=== PATIENT | male | born 1965 | race African-American/Black ===

== ENCOUNTER 2018-04-08 08:31 | Outpatient (CLI) | payer MEDICARE ==
[~2018-04-08 08:31] MED LIST: ISOVUE-370 76%-LOCM 1 ML ONE
== END 2018-04-08 08:32 | disposition home or self-care (01) ==
LOC: BICCT 08:31
PROVIDERS: ATTEND Internal Medicine Hematology & Oncology
DX: C49.A2 Gastrointestinal stromal tumor of stomach (principal); Z98.890 Other specified postprocedural states
CPT/HCPCS: 74177

== ENCOUNTER 2018-11-08 09:00 | Outpatient (CLI) | payer MEDICARE ==
[2018-11-08] MEDS ORDERED: Iopamidol 370 76% 100 ML VIAL ONE (09:38)
--- NOTE | 2018-11-08 10:32 | CT ---
CT ABDOMEN AND PELVIS WITH IV AND ORAL CONTRAST: HISTORY: Gastrointestinal stromal tumor of the stomach, status post surgical removal three years ago. No chem o or radiation. COMPARISON: 04/08/2018 FINDINGS: The lung bases are clear. A few small, low density lesions in the liver are stable. The spleen, [place], adrenal glands, and kidneys are normal. No free air, free fluid, or lymphadenopathy is seen i n the abdomen or pelvis. Postop changes of partial gastrectomy and gastrojejunal anastomotic are again seen. The small bowel loops are not abnormally dilated. There are vascular calcifications without evidence of aneurysmal d ilatation of the abdominal aorta. Degenerative changes are seen in the spine. No osteolytic or oste oblastic lesions are seen. IMPRESSION: No evidence of metastatic disease. POS: TPC
== END 2018-11-08 09:01 | disposition home or self-care (01) ==
LOC: BICCT 09:00
PROVIDERS: ATTEND Internal Medicine Hematology & Oncology
DX: C49.A2 Gastrointestinal stromal tumor of stomach (principal)
CPT/HCPCS: 74177

== ENCOUNTER 2019-04-29 10:53 | Outpatient (CLI) | payer MEDICARE ==
--- NOTE | 2019-04-29 11:55 | CT ---
CT ABDOMEN AND PELVIS WITH IV CONTRAST 04/29/2019 CLINICAL INFORMATION: History of GI stromal tumor. Tumor removed 3 years ago. This is a follow-up evaluation. COMPARISON: 11/08/2018. Technique: Multiple contiguous axial CT images are obtained through the abdomen and pelvis with IV contrast. Cor onal reformatted images are provided. FINDINGS: Lower Chest: The lung bases are clear. The heart is enlarged. Vessels: Minimal vascular calcifications are seen in the abdominal aorta. The abdominal aorta is norm al in caliber and tortuous. Abdomen: Portal vein:Patent Gallbladder: Decompressed. Liver: Few small hypodense lesions are again seen in the left hepatic lobe as well as right hepatic l obe which are stable in size and appearance compared to prior study as well as a study on 01/12/2015. No new hepatic lesions are seen. Spleen: within normal limits. Pancreas: within normal limits. Adrenals: within normal limits. Kidneys: Subcentimeter too small to characterize hypodense lesion is again seen in the medial aspect superior pole left kidney. Structures shown to represent a cyst on prior study in 2014 which has decreased in size. Tiny subcentimeter hypodense lesion is again seen in the midportion right kidney. Bowel: Loops of small bowel are normal in caliber. Postoperative changes related to partial gastrecto my with gastrojejunal anastomosis are again seen. Colonic diverticulosis is again present. Appendix: The appendix is visualized and normal in caliber. Peritoneum: No ascites or free air; no fluid collection. Mesentery and Retroperitoneum: No enlarged mesenteric or retroperitoneal lymph nodes. Abdominal Wall: Midline scarring is present in a supraumbilical location. Pelvis: Reproductive Organs: No pelvic masses. Pelvis within normal limits. Bladder: Mostly decompressed but grossly normal in appearance. Bones: No suspicious lytic or sclerotic osseous lesions are identified. Degenerative changes are note d in the spine. IMPRESSION: 1. Stable postoperative changes related to partial gastrectomy and gastrojejunostomy. 2. Stable hypodense lesions within each lobe of the liver seen on prior studies dating back to 2014. 3. Colonic diverticulosis. 4. No CT findings to suggest metastatic disease. 5. Cardiomegaly.
[2019-04-29] MEDS ORDERED: ISOVUE-370 76%-LOCM 1 ML ONE (12:45)
== END 2019-04-29 10:54 | disposition home or self-care (01) ==
LOC: BICCT 10:53
PROVIDERS: ATTEND Specialist
DX: Z08 Encounter for follow-up examination after completed treatment for malignant neoplasm (principal); Z85.09 Personal history of malignant neoplasm of other digestive organs; K76.9 Liver disease, unspecified; K57.30 Diverticulosis of large intestine without perforation or abscess without bleeding; I51.7 Cardiomegaly; Z98.890 Other specified postprocedural states
CPT/HCPCS: 74177; Q9966

== ENCOUNTER 2019-06-08 21:33 | Inpatient (IN) | payer MEDICARE ==
[2019-06-08] MEDS ORDERED: hydrALAZINE 20 MG/ML VIAL ONE (22:12)
[2019-06-08] MEDS ORDERED: Morphine 2 MG/ML SYRINGE SLOW IVP PRN (23:02)
[2019-06-08] MEDS ORDERED: Morphine 4 MG/ML VIAL SLOW IVP PRN (23:02)
[2019-06-08] MEDS ORDERED: Ondansetron PF 4 MG/2 ML Vial ONE (23:03)
[2019-06-08] MEDS ORDERED: Ondansetron PF 4 MG/2 ML Vial IVP PRN (23:03)
[2019-06-08] MEDS ORDERED: Morphine 4 MG/ML VIAL ONE (23:03)
[2019-06-08] MEDS ORDERED: Acetaminophen 1,000 MG in Premix Bag 1 BAG IVPB PRN (23:04)
[2019-06-08] MEDS ORDERED: Sodium Chloride 0.9% (PF) 10 ML VIAL FS PRN (23:12)
[2019-06-09] MEDS ORDERED: Bupivacaine HCl 0.5%/Epinephrine 1:200,000/PF 30 ml Vial ONE
[2019-06-09] MEDS ORDERED: Fentanyl 250 MCG/5 ML VIAL ONE (00:06)
[2019-06-09] MEDS ORDERED: cefOXitin 2 GM VIAL ONE ×2 (00:20→02:31)
[2019-06-09] MEDS ORDERED: Sodium Chloride 0.9% 100 ML ONE (00:21)
[2019-06-09] MEDS ORDERED: Promethazine HCl 25 MG/ML VIAL SLOW IVP PRN ×2 (00:51→02:58)
[2019-06-09] MEDS ORDERED: Promethazine HCl 25 MG/ML VIAL IM PRN ×4 (00:51→02:58)
[2019-06-09] MEDS ORDERED: Ondansetron HCl/PF 4 MG/2 ML Vial IVP PRN ×2 (00:51→02:58)
[2019-06-09] MEDS ORDERED: diphenhydrAMINE 50 MG/ML VIAL IM PRN ×2 (00:52→02:58)
[2019-06-09] MEDS ORDERED: fentaNYL Citrate/PF 2,000 MCG in Sodium Chloride 0.9% 60 ML IV PRN ×2 (00:52→02:58)
[2019-06-09] MEDS ORDERED: Ondansetron PF 4 MG/2 ML Vial IVP PRN ×2 (00:52→02:58)
[2019-06-09] MEDS ORDERED: Naloxone HCl 0.4 mg/ml Vial IV PRN ×2 (00:52→02:58)
[2019-06-09] MEDS ORDERED: diphenhydrAMINE 25 MG CAP PO PRN ×2 (00:52→02:58)
[2019-06-09] MEDS ORDERED: diphenhydrAMINE 50 MG/ML VIAL IVP PRN ×2 (00:52→02:58)
[2019-06-09] MEDS ORDERED: Zolpidem Tartrate 5 MG TAB PO PRN ×2 (00:52→02:58)
--- NOTE | 2019-06-09 00:54 | HP ---
CHIEF COMPLAINT: Abdominal pain. HISTORY OF PRESENT ILLNESS: Mr. Lara is a 53-year-old man who had gradual onset of lower abdominal pain beginning yesterday afternoon. This became progressively worse. He had several episodes of nausea and vomiting. His last bowel movement was on Thursday and he passed gas this morning, but has felt like he needed to pass gas or have a bowel movement, but has been unable to since that time. He presented to his local hospital, where a CT was concerning for closed-loop bowel obstruction. He had an NG tube placed with about half a canister of return and had incomplete relief of his pain with improvement but not resolution of his symptoms. He came to our hospital, was fairly comfortable when I first saw him and reported that he had intermittent episodes of crampy abdominal pain but not as severe as when he went into the hospital. His NG tube was something and had minimal output. PAST MEDICAL HISTORY: GI stromal tumor, status post antrectomy and Migel-en-Y reconstruction by Dr. Beach in 2017. This was an emergency surgery due to bleeding of the ulcer, was about 4-1/2 L of blood in the belly. He has been following up with Oncology and has not had any evidence of metastatic spread. He has severe hypertension, but normal renal function. PAST SURGICAL HISTORY: Emergency partial gastrectomy with Migel-en-Y reconstruction for GI stromal tumor with hemorrhage in 2017. He also had some sort of urologic procedure, which he describes as drainage of a blood clot from his penis. FAMILY HISTORY: Noncontributory. SOCIAL HISTORY: He does not smoke, drink, or use illicit drugs. ALLERGIES: NO KNOWN DRUG ALLERGIES. OUTPATIENT MEDICATIONS: Include; 1. Amlodipine 10 mg p.o. daily. 2. Clonazepam 1.5 mg p.o. b.i.d. 3. Clonidine 0.1 mg p.o. daily. 4. Metoprolol 50 mg p.o. daily. 5. Hydralazine 10 mg p.o. b.i.d. 6. Spironolactone 50 mg daily. 7. Imatinib. PHYSICAL EXAMINATION: VITAL SIGNS: He was initially quite hypertensive on arrival in our ER at 196/119, heart rate of 67, respirations 22, temperature 99.1, and 97% saturated on room air. His blood pressure has come down with IV hydralazine and is in the 140 systolic now. GENERAL: Reveals a healthy-appearing man, in no acute distress. He is not flushed, not jaundiced or icteric. HEENT: Unremarkable. NECK: Supple with no lymphadenopathy or thyroid nodules. HEART: Regular in its rate and rhythm without murmurs, rubs, or gallops. LUNGS: Clear to auscultation bilaterally. ABDOMEN: Soft, slightly distended and mildly tender to palpation in the lower abdomen. Bowel sounds are present. No palpable masses or hernias. EXTREMITIES: Warm and well perfused without edema. NEUROLOGIC: No focal deficits. PSYCHIATRIC: Alert, oriented, and appropriate. NG tube is in place and has return of flush. IMAGING: CT images were reviewed with our radiologist. There does not appear to be a closed loop obstruction. This does not appear to involve either of the anastomoses. There is some fluid around the bowel loops. ASSESSMENT: Closed loop small-bowel obstruction. Patient initially appeared quite comfortable, but his pain has returned. I have recommended proceeding emergently to the operating room tonight for lysis of adhesions, possible bowel resection. He is in agreement with this plan. Inherent risks were discussed. These include, but are not limited to, bleeding, infection, risks of anesthesia, damage to nearby structures including bowel and blood vessels, anastomotic leak, and need for other procedures. He understands and accepts these risks and wishes to proceed. Antibiotics have been ordered executive search consultant. He has been posted emergently for the operating room. Job ID: [id number]
[2019-06-09] MEDS ORDERED: Communication Order-Pharmacy FS SCH ×2 (01:00→03:00)
[2019-06-09] MEDS ORDERED: Morphine Sulfate 2 MG/ML SYRINGE SLOW IVP PRN (02:58)
[2019-06-09] MEDS ORDERED: Meperidine HCl/PF 25 MG/ML VIAL SLOW IVP PRN (02:58)
[2019-06-09] MEDS ORDERED: HYDROmorphone 2 MG/ML VIAL SLOW IVP PRN (02:58)
[2019-06-09] MEDS ORDERED: Ketorolac Tromethamine 30 MG/ML VIAL IVP PRN (02:58)
[2019-06-09] MEDS ORDERED: PACU-Morphine 4MG/ML VIAL SLOW IVP PRN (02:58)
[2019-06-09] MEDS ORDERED: Fentanyl 100 MCG/2 ML VIAL ONE (03:17)
[2019-06-09] MEDS ORDERED: Dextrose 50% Abboject 50 ML SYRINGE IVP PRN (03:19)
[2019-06-09] MEDS ORDERED: Insulin Regular 300 UNITS/3 ML VIAL SC PRN ×2 (03:19→11:59)
[2019-06-09] MEDS ORDERED: Dextrose 5% in Water 1,000 ML IV PRN (03:19)
[2019-06-09] MEDS ORDERED: Ondansetron PF 4 MG/2 ML Vial SLOW IVP PRN (03:20)
[2019-06-09] MEDS ORDERED: Pantoprazole 40 MG VIAL IVP SCH ×2 (03:30→09:00)
[2019-06-09] MEDS ORDERED: Ketorolac Tromethamine 30 MG/ML VIAL ONE (03:42)
[2019-06-09] MEDS: Sodium Chloride 0.9% 1,000 ML IV SCH ×4 (05:22→17:14)
[2019-06-09 05:31] LABS: #Lymphocytes 0.3 thou/uL (1.20-3.40); #Monocytes 0.8 thou/uL (0.11-0.59); #Neutrophils 8.6 thou/uL (1.40-6.50); %Basophils 0.3 % (0.0-1.0); %Eosinophils 0.1 % (0.0-10.0); %Monocytes 7.8 % (0.0-10.0); %Neutrophils 88.9 % (42.0-75.0); Hemoglobin 12.9 g/dL (14.0-18.0); Mean Corpuscular HGB CONC 32.6 g/dL (32.0-36.0); Mean Corpuscular Hemoglobin 31.4 pg (27.0-31.0); Mean Corpuscular Volume 96.3 fL (78.0-98.0); Mean Platelet Volume 7.7 fL (7.4-10.4); Platelet Count 321 thou/uL (130-400); Red Blood Cell (RBC) Count 4.11 mill/uL (4.70-6.10); White Blood Cell (WBC) Count 9.7 thou/uL (4.8-10.8)
[2019-06-09 05:55] LABS: Anion Gap 12 mmol/L (10-20); BUN (Urea Nitrogen) 21 mg/dL (8.4-25.7); Calc. Creatinine Clearance 0 mL/min (70-130); Calcium 8.6 mg/dL (7.8-10.44); Carbon Dioxide 25 mmol/L (22-29); Chloride 109 mmol/L (98-107); Estimated GFR-MDRD 65; Glucose 139 mg/dL (70-105); Potassium 4.1 mmol/L (3.5-5.1); Sodium 142 mmol/L (136-145)
[2019-06-09 06:34] VITALS: BMI 32.3
[2019-06-09] MEDS ORDERED: FLU VACC QS2019-20(6MOS UP)/PF 60 MCG/0.5 ML SYRINGE IM ONE (07:00)
[2019-06-09] MEDS ORDERED: Labetalol HCl 100 MG/20 ML VIAL SLOW IVP PRN ×3 (08:53→08:57)
[2019-06-09] MEDS ORDERED: cloNIDine 0.3mg/24 Hour PATCH TD SCH (09:00)
[2019-06-09] MEDS: CEFOXITIN SODIUM IVPB SCH ×2 (09:27→17:03)
[2019-06-09] MEDS: DEXTROSE ISO IVPB SCH ×2 (09:27→17:03)
[2019-06-09] MEDS ORDERED: Labetalol HCl 100 MG/20 ML VIAL SLOW IVP SCH (12:00)
[2019-06-09] MEDS: hydrALAZINE 20 MG/ML VIAL SLOW IVP PRN (13:01)
[2019-06-09] MEDS: Labetalol HCl 100 MG/20 ML VIAL SLOW IVP SCH ×3 (13:02→23:13)
--- NOTE | 2019-06-09 13:54 | PDOC.GSPN ---
Surgery Progress Note: Subj - Subjective Narrative: Patient feels much better this morning. He hasn't passed any gas yet but he is not nauseated and his abdominal pain is significantly better even with the incisional pain. The dressings clean and his abdomen is soft and nondistended. Labs look okay. Assessment/plan: Status post lysis of adhesions reduction and repair of internal hernia. Doing well overall. Awaiting return of bowel function. Continue NG and nothing by mouth for now Surgery Progress Note: Obj - Vital signs Vital signs: Vital Signs - Most Recent Temp Pulse Resp BP Pulse Ox 98.2 F 67 16 182/95 H 96 06/09/19 11:39 06/09/19 13:01 06/09/19 11:39 06/09/19 13:01 06/09/19 11:39 Surgery Progress Note: Results - Labs Result Diagrams: 06/09/19 04:58 06/09/19 04:58 Lab results: Laboratory Results - last 24 hr 06/09/19 06/09/19 06/09/19 04:58 04:58 04:58 WBC 9.7 RBC 4.11 L Hgb 12.9 L Hct 39.6 L MCV 96.3 MCH 31.4 H MCHC 32.6 RDW 13.0 Plt Count 321 MPV 7.7 Neutrophils % 88.9 H Lymphocytes % 3.0 L Monocytes % 7.8 Eosinophils % 0.1 Basophils % 0.3 Neutrophils # 8.6 H Lymphocytes # 0.3 L Monocytes # 0.8 H Eosinophils # 0.0 Basophils # 0.0 Sodium 142 Potassium 4.1 Chloride 109 H Carbon Dioxide 25 Anion Gap 12 BUN 21 Creatinine 1.37 H Estimated GFR (MDRD) 65 Glucose 139 H POC Glucose Calcium 8.6 Magnesium 1.8 06/09/19 06/09/19 05:37 11:44 WBC RBC Hgb Hct MCV MCH MCHC RDW Plt Count MPV Neutrophils % Lymphocytes % Monocytes % Eosinophils % Basophils % Neutrophils # Lymphocytes # Monocytes # Eosinophils # Basophils # Sodium Potassium Chloride Carbon Dioxide Anion Gap BUN Creatinine Estimated GFR (MDRD) Glucose POC Glucose 135 H 129 H Calcium Magnesium
[2019-06-09] MEDS: Acetaminophen 1,000 MG in Premix Bag 1 BAG IVPB SCH ×2 (14:02→19:55)
[2019-06-09] MEDS ORDERED: Succinylcholine Chloride 20 MG/ML 10 ml SYRINGE FS ONE (14:46)
[2019-06-09] MEDS ORDERED: Dexamethasone 20 MG/5 ML VIAL ONE (14:46)
[2019-06-09] MEDS ORDERED: ePHEDrine/0.9% NaCl/PF SYRINGE 50 mg/10 ml ONE (14:46)
[2019-06-09] MEDS ORDERED: PROPOFOL 200 MG/20 ML VIAL ONE (14:46)
[2019-06-09] MEDS ORDERED: Ondansetron PF 4 MG/2 ML Vial ONE (14:46)
[2019-06-09] MEDS ORDERED: Glycopyrrolate 0.2 MG/ML 5 ML SYRINGE ONE (14:46)
[2019-06-09] MEDS ORDERED: Lidocaine 1% PF 5 ML VIAL ONE (14:46)
[2019-06-09] MEDS ORDERED: Rocuronium Bromide 10 MG/ML (10ML VIAL) ONE (14:46)
[2019-06-09] MEDS: Pantoprazole 40 MG VIAL IVP SCH (20:00)
--- NOTE | 2019-06-09 21:33 | PDOC.HOSPP ---
- Subjective Encounter Date: 06/09/19 Encounter Time: 09:30 Subjective: Patient seen and examined for med mngt. No CP/SOB. Pain controlled. No new complaints. - Objective Vital Signs & Weight: Vital Signs (12 hours) Temp Pulse Resp BP BP BP Pulse Ox 06/09/19 19:42 98.2 F 66 18 158/81 H 95 06/09/19 17:08 66 18 161/89 H 97 06/09/19 17:04 79 06/09/19 14:54 98.7 F 79 16 175/93 H 99 06/09/19 13:01 67 182/95 H 06/09/19 11:39 98.2 F 68 16 176/94 H 96 06/09/19 09:45 161/91 H Weight Admit Weight 212 lb 15.52 oz Weight 212 lb 15.52 oz I&O: 06/08/19 06/09/19 06/10/19 06:59 06:59 06:59 Intake Total 1800 Output Total 500 Balance 1300 Result Diagrams: 06/09/19 04:58 06/09/19 04:58 Additional Labs: Accuchecks 06/09/19 06/09/19 06/09/19 18:04 11:44 05:37 POC Glucose 118 H 129 H 135 H EKG Reviewed by me: Yes (SR) Hospitalist ROS - Review of Systems Respiratory: denies: cough, dry, shortness of breath, hemoptysis, SOB with excertion, pleuritic pain, sputum, wheezing, other Cardiovascular: denies: chest pain, palpitations, orthopnea, paroxysmal noc. dyspnea, edema, light headedness, other - Medication Medications: Active Medications Generic Name Dose Route Start Last Admin Trade Name Freq PRN Reason Stop Dose Admin Clonidine 0.3 mg 06/09/19 09:00 06/09/19 09:29 [id number] TD 0.3 mg Q7DAYS ANUSHA Administration Hydralazine HCl 10 mg 06/09/19 08:56 06/09/19 13:01 Apresoline SLOW IVP 10 mg Q4H PRN Administration SBP Greater Than 180 Sodium Chloride 1,000 mls @ 150 mls/hr 06/08/19 23:15 06/09/19 17:14 Normal Saline 0.9% IV 1,000 mls .[id number] ANUSHA Administration Acetaminophen 1,000 mg/ Device 100 mls @ 400 mls/hr 06/09/19 14:00 06/09/19 19:55 IVPB 06/10/19 08:14 100 mls 0200,0800,1400,2000 ANUSHA Administration Labetalol HCl 10 mg 06/09/19 12:00 06/09/19 17:04 Normodyne SLOW IVP 10 mg Q6HR ANUSHA Administration Pantoprazole Sodium 40 mg 06/09/19 21:00 06/09/19 20:00 Protonix IVP 40 mg Q24HR ANUSHA Administration - Exam General Appearance: NAD Neck: supple, no JVD Heart: RRR, no gallops Respiratory: CTAB, no wheezes, no rales Gastrointestinal: soft Extremities: no edema Hosp A/P - Plan DVT proph w/SCDs HTN SILVA on CKD 2 HTN heart disease DM2 - diet controlled Obesity BMI 32.4 Gastric tumor HLD TERESA PLAN: Pt is NPO Add Clonidine 0.3 Patch Add scheduled Labetalol 10 mg Q 6h Add PRN HTN meds Add sliding scale Ambulate Cont IVF for SILVA AM labs
[2019-06-10] MEDS: Sodium Chloride 0.9% 1,000 ML IV SCH ×2 (01:51→21:13)
[2019-06-10] MEDS: Acetaminophen 1,000 MG in Premix Bag 1 BAG IVPB SCH ×2 (01:52→08:48)
[2019-06-10 04:40] LABS: #Lymphocytes 0.4 thou/uL (1.20-3.40); #Monocytes 0.8 thou/uL (0.11-0.59); #Neutrophils 6.7 thou/uL (1.40-6.50); %Eosinophils 0.1 % (0.0-10.0); %Lymphocytes 5.5 % (21.0-51.0); %Monocytes 10.5 % (0.0-10.0); %Neutrophils 83.9 % (42.0-75.0); Hemoglobin 11.9 g/dL (14.0-18.0); Mean Corpuscular HGB CONC 32.3 g/dL (32.0-36.0); Mean Corpuscular Hemoglobin 31.4 pg (27.0-31.0); Mean Corpuscular Volume 97.2 fL (78.0-98.0); Mean Platelet Volume 7.5 fL (7.4-10.4); Platelet Count 292 thou/uL (130-400); RBC Distribution Width 13.1 % (11.5-14.5); Red Blood Cell (RBC) Count 3.79 mill/uL (4.70-6.10); White Blood Cell (WBC) Count 7.9 thou/uL (4.8-10.8)
[2019-06-10 05:02] LABS: Anion Gap 12 mmol/L (10-20); BUN (Urea Nitrogen) 25 mg/dL (8.4-25.7); Calc. Creatinine Clearance 93 mL/min (70-130); Calcium 8.2 mg/dL (7.8-10.44); Carbon Dioxide 25 mmol/L (22-29); Chloride 112 mmol/L (98-107); Estimated GFR-MDRD 75; Glucose 95 mg/dL (70-105); Potassium 4.1 mmol/L (3.5-5.1); Sodium 145 mmol/L (136-145)
[2019-06-10] MEDS: Labetalol HCl 100 MG/20 ML VIAL SLOW IVP SCH ×2 (05:19→12:06)
[2019-06-10] MEDS ORDERED: Sodium Chloride 0.9% 1,000 ML IV SCH (07:12)
[2019-06-10] MEDS ORDERED: Enalaprilat Dihydrate 1.25 MG/ML VIAL SLOW IVP SCH ×3 (09:00→15:00)
[2019-06-10] MEDS: hydrALAZINE 20 MG/ML VIAL SLOW IVP PRN ×2 (09:00→12:32)
[2019-06-10] MEDS ORDERED: Metoprolol Tartrate 100 MG TAB PO SCH ×2 (10:00→21:00)
[2019-06-10] MEDS ORDERED: Amlodipine 10 MG TAB PO SCH (10:00)
[2019-06-10] MEDS ORDERED: Enoxaparin Sodium 40 MG/0.4 ML SYRINGE SC SCH (10:00)
[2019-06-10] MEDS ORDERED: Fentanyl 100 MCG/2 ML VIAL SLOW IVP PRN (10:35)
[2019-06-10] MEDS: hydrALAZINE 25 MG TAB PO SCH ×2 (14:12→21:03)
--- NOTE | 2019-06-10 14:56 | PDOC.GSPN ---
Surgery Progress Note: Subj - Subjective Narrative: Patient is feeling fine. He is not having any pain or nausea. He has passed gas. NG tube is in place but there is not much output. His dressings are clean and his abdomen is soft. Blood pressure has been high but other vital signs are okay. Assessment/plan: Doing well status post reduction of internal hernia and repair of mesenteric defect. He is beginning to have some bowel functions we will clamp his NG and check residuals. He has had very difficult to control high blood pressure which has been an ongoing long-term problem for him. I restarted all of his home oral medications that he is still running high and the nurse has been in frequent contact with the hospitalist for this problem. From a surgical standpoint however he is doing well. If he tolerates clamping his NG we will start him on clear liquids and advance his diet as tolerated. Surgery Progress Note: Obj - Vital signs Vital signs: Vital Signs - Most Recent Temp Pulse Resp BP Pulse Ox 98.0 F 65 18 171/95 H 96 06/10/19 03:28 06/10/19 14:12 06/10/19 11:52 06/10/19 14:12 06/10/19 11:52 Surgery Progress Note: Results - Labs Result Diagrams: 06/10/19 04:24 06/10/19 04:24 Lab results: Laboratory Results - last 24 hr 06/10/19 06/10/19 06/10/19 04:24 04:24 05:42 WBC 7.9 RBC 3.79 L Hgb 11.9 L Hct 36.9 L MCV 97.2 MCH 31.4 H MCHC 32.3 RDW 13.1 Plt Count 292 MPV 7.5 Neutrophils % 83.9 H Lymphocytes % 5.5 L Monocytes % 10.5 H Eosinophils % 0.1 Basophils % 0.0 Neutrophils # 6.7 H Lymphocytes # 0.4 L Monocytes # 0.8 H Eosinophils # 0.0 Basophils # 0.0 Sodium 145 Potassium 4.1 Chloride 112 H Carbon Dioxide 25 Anion Gap 12 BUN 25 Creatinine 1.22 Estimated GFR (MDRD) 75 Glucose 95 POC Glucose 81 Calcium 8.2 06/10/19 12:31 WBC RBC Hgb Hct MCV MCH MCHC RDW Plt Count MPV Neutrophils % Lymphocytes % Monocytes % Eosinophils % Basophils % Neutrophils # Lymphocytes # Monocytes # Eosinophils # Basophils # Sodium Potassium Chloride Carbon Dioxide Anion Gap BUN Creatinine Estimated GFR (MDRD) Glucose POC Glucose 86 Calcium
[2019-06-10] MEDS ORDERED: hydrALAZINE 25 MG TAB PO SCH (15:00)
[2019-06-10] MEDS ORDERED: Acetaminophen 500 MG TAB PO PRN (17:31)
[2019-06-10] MEDS: Metoprolol Tartrate 100 MG TAB PO SCH (21:04)
[2019-06-10] MEDS: Lisinopril 20 MG TAB PO SCH (21:04)
[2019-06-10] MEDS: Pantoprazole 40 MG VIAL IVP SCH (21:05)
[2019-06-10] MEDS: cloNIDine 0.3 MG TAB PO SCH (21:11)
--- NOTE | 2019-06-10 23:16 | PDOC.HOSPP ---
- Subjective Encounter Date: 06/10/19 Encounter Time: 10:00 Subjective: Patient seen and examined for med mngt. Pain controlled. BP uncontrolled per RN. No new complaints. No overnight events - Objective Vital Signs & Weight: Vital Signs (12 hours) Temp Pulse Resp BP BP BP Pulse Ox 06/10/19 21:04 171/95 H 06/10/19 21:03 66 06/10/19 20:02 98.2 F 66 18 147/87 H 95 06/10/19 18:14 69 143/78 H 06/10/19 16:15 69 151/87 H 06/10/19 15:17 69 18 160/89 H 98 06/10/19 14:12 65 171/95 H 06/10/19 12:32 67 199/120 H 06/10/19 12:15 188/114 H 06/10/19 12:06 67 199/113 H 06/10/19 11:52 67 18 199/113 H 96 Weight Admit Weight 212 lb 15.52 oz Weight 212 lb 15.52 oz I&O: 06/09/19 06/10/19 06/11/19 06:59 06:59 06:59 Intake Total 3600 2000 Output Total 1150 625 Balance 2450 1375 Result Diagrams: 06/10/19 04:24 06/10/19 04:24 Additional Labs: Accuchecks 06/10/19 06/10/19 06/10/19 17:49 12:31 05:42 POC Glucose 84 86 81 06/09/19 23:44 POC Glucose 93 Hospitalist ROS - Review of Systems Respiratory: denies: cough, dry, shortness of breath, hemoptysis, SOB with excertion, pleuritic pain, sputum, wheezing, other Cardiovascular: denies: chest pain, palpitations, orthopnea, paroxysmal noc. dyspnea, edema, light headedness, other - Medication Medications: Active Medications Generic Name Dose Route Start Last Admin Trade Name Freq PRN Reason Stop Dose Admin Clonidine 0.3 mg 06/09/19 09:00 06/09/19 09:29 [id number] TD 0.3 mg Q7DAYS ANUSHA Administration Hydralazine HCl 10 mg 06/09/19 08:56 06/10/19 12:32 Apresoline SLOW IVP 10 mg Q4H PRN Administration SBP Greater Than 180 Hydralazine HCl 100 mg 06/10/19 14:00 06/10/19 21:03 Apresoline PO 100 mg Q8HR ANUSHA Administration Sodium Chloride 1,000 mls @ 75 mls/hr 06/10/19 13:00 06/10/19 21:13 Normal Saline 0.9% IV 1,000 mls .[id number] ANUSHA Administration Lisinopril 20 mg 06/10/19 21:00 06/10/19 21:04 Zestril PO 20 mg BID ANUSHA Administration Metoprolol Tartrate 100 mg 06/10/19 21:00 06/10/19 21:04 Lopressor PO 100 mg BID ANUSHA Administration Pantoprazole Sodium 40 mg 06/09/19 21:00 06/10/19 21:05 Protonix IVP 40 mg Q24HR ANUSHA Administration - Exam General Appearance: NAD Neck: supple, no JVD Heart: RRR, no gallops Respiratory: CTAB, no rales Gastrointestinal: soft Extremities: no edema Hosp A/P - Plan DVT proph w/SCDs HTN - uncontrolled SILVA on CKD 2 - improved HTN heart disease DM2 - diet controlled Obesity BMI 32.4 Gastric tumor HLD TERESA PLAN: Home meds restarted Cont Clonidine 0.3 Patch - DC prior to dc DC Scheduled Labetalol if tolerating PO meds Cont PRN HTN meds Cont sliding scale Ambulate Reduce IVF to 75 ml/hr
[2019-06-11] MEDS: Sodium Chloride 0.9% 1,000 ML IV SCH ×2 (03:42→18:52)
[2019-06-11] MEDS: hydrALAZINE 25 MG TAB PO SCH ×3 (06:04→22:10)
[2019-06-11] MEDS: Enoxaparin Sodium 40 MG/0.4 ML SYRINGE SC SCH (08:33)
[2019-06-11] MEDS: Metoprolol Tartrate 100 MG TAB PO SCH ×2 (08:33→20:52)
[2019-06-11] MEDS: Lisinopril 20 MG TAB PO SCH ×2 (08:34→20:53)
[2019-06-11] MEDS: Aspirin 325 MG TAB PO SCH (08:34)
[2019-06-11] MEDS: Spironolactone 25 MG TAB PO SCH (08:34)
[2019-06-11] MEDS: Amlodipine 10 MG TAB PO SCH (08:34)
[2019-06-11] MEDS ORDERED: Amlodipine 10 MG TAB PO SCH (09:00)
[2019-06-11] MEDS: cloNIDine 0.3 MG TAB PO SCH ×2 (10:11→20:52)
[2019-06-11] MEDS ORDERED: traMADol HCl 50 MG TAB PO PRN ×2 (10:44)
--- NOTE | 2019-06-11 11:20 | PDOC.GSPN ---
Surgery Progress Note: Subj - Subjective Narrative: Patient is feeling good. He had a small liquid bowel movement this morning. He is tolerating clear liquids without nausea vomiting or bloating. He has not required anything for abdominal pain. His vital signs are much better today. His blood pressure is under much better control and he is afebrile. His abdomen is soft and nondistended. His incision looks good. He has good bowel sounds. Assessment/plan: Doing well status post reduction and repair of internal hernia causing bowel obstruction. His bowel function appears to be returning and we will advance his diet as tolerated. If he tolerates this he will be ready for discharge likely by tomorrow. Dr. Elliott will be rounding on this patient over the weekend. Surgery Progress Note: Obj - Vital signs Vital signs: Vital Signs - Most Recent Temp Pulse Resp BP Pulse Ox 98.2 F 60 18 129/80 98 06/11/19 04:05 06/11/19 11:13 06/11/19 11:13 06/11/19 11:13 06/11/19 11:13 Surgery Progress Note: Results - Labs Result Diagrams: 06/10/19 04:24 06/10/19 04:24 Lab results: Laboratory Results - last 24 hr 06/10/19 06/11/19 23:59 06:11 POC Glucose 77 76
--- NOTE | 2019-06-11 16:44 | PDOC.HOSPP ---
- Subjective Encounter Date: 06/11/19 Encounter Time: 09:00 Subjective: Pt seen for followup re: hypertensive urgency. Says he feels better. Passing flatus. - Objective Vital Signs & Weight: Vital Signs (12 hours) Pulse Resp BP BP BP Pulse Ox 06/11/19 15:34 61 18 145/89 H 100 06/11/19 15:10 60 145/89 H 06/11/19 11:13 60 18 129/80 98 06/11/19 10:11 138/71 06/11/19 08:34 73 138/71 06/11/19 08:24 98 06/11/19 08:19 72 18 138/71 98 06/11/19 06:04 64 Weight Admit Weight 212 lb 15.52 oz Weight 212 lb 15.52 oz I&O: 06/10/19 06/11/19 06/12/19 06:59 06:59 06:59 Intake Total 3600 3000 Output Total 1150 1525 Balance 2450 1475 Result Diagrams: 06/10/19 04:24 06/10/19 04:24 Additional Labs: Accuchecks 06/11/19 06/11/19 06/11/19 15:47 11:51 06:11 POC Glucose 77 109 76 06/10/19 06/10/19 23:59 17:49 POC Glucose 77 84 Labs and MARs reviewed by co Hospitalist ROS - Review of Systems Cardiovascular: denies: chest pain, palpitations, orthopnea, paroxysmal noc. dyspnea, edema, light headedness Gastrointestinal: reports: other (passing flatus) - Medication Medications: Active Medications Generic Name Dose Route Start Last Admin Trade Name Nirmal PRN Reason Stop Dose Admin Amlodipine Besylate 10 mg 06/11/19 09:00 06/11/19 08:34 Norvasc PO 10 mg DAILY ANUSHA Administration Aspirin 325 mg 06/11/19 09:00 06/11/19 08:34 Aspirin PO 325 mg DAILY ANUSHA Administration Clonidine 0.3 mg 06/09/19 09:00 06/09/19 09:29 [id number]-Zpn-0 TD 0.3 mg Q7DAYS ANUSHA Administration Clonidine 0.3 mg 06/10/19 21:00 06/11/19 10:11 Catapres PO 0.3 mg BID ANUSHA Administration Enoxaparin Sodium 40 mg 06/11/19 09:00 06/11/19 08:33 Lovenox SC 40 mg 0900 ANUSHA Administration Hydralazine HCl 10 mg 06/09/19 08:56 06/10/19 12:32 Apresoline SLOW IVP 10 mg Q4H PRN Administration SBP Greater Than 180 Hydralazine HCl 100 mg 06/10/19 14:00 06/11/19 15:10 Apresoline PO 100 mg Q8HR ANUSHA Administration Sodium Chloride 1,000 mls @ 75 mls/hr 06/10/19 13:00 06/11/19 03:42 Normal Saline 0.9% IV Not Given .[id number] ANUSHA Lisinopril 20 mg 06/10/19 21:00 06/11/19 08:34 Zestril PO 20 mg BID ANUSHA Administration Metoprolol Tartrate 100 mg 06/10/19 21:00 06/11/19 08:33 Lopressor PO 100 mg BID ANUSHA Administration Pantoprazole Sodium 40 mg 06/09/19 21:00 06/10/19 21:05 Protonix IVP 40 mg Q24HR ANUSHA Administration Spironolactone 50 mg 06/11/19 08:00 06/11/19 08:34 Aldactone PO 50 mg QAM-WM ANUSHA Administration - Exam General - other findings: Obese Eye: anicteric sclera ENT: moist mucosa Neck: supple, no JVD Heart: RRR, no rubs Respiratory: CTAB, no rales Gastrointestinal: soft, non-tender Extremities: no clubbing Psychiatric: normal affect, normal behavior Hosp A/P (1) Hypertensive urgency Code(s): I16.0 - HYPERTENSIVE URGENCY Status: Acute (2) Dyslipidemia Code(s): E78.5 - HYPERLIPIDEMIA, UNSPECIFIED Status: Chronic - Plan BP improved. DC clonidine patch. Likely home tomorrow.
[2019-06-11] MEDS: Pantoprazole 40 MG VIAL IVP SCH (20:54)
[2019-06-12] MEDS: Sodium Chloride 0.9% 1,000 ML IV SCH (02:44)
[2019-06-12] MEDS: hydrALAZINE 25 MG TAB PO SCH ×2 (05:32→14:33)
[2019-06-12] MEDS: Enoxaparin Sodium 40 MG/0.4 ML SYRINGE SC SCH (08:34)
[2019-06-12] MEDS: Spironolactone 25 MG TAB PO SCH (08:35)
[2019-06-12] MEDS: Lisinopril 20 MG TAB PO SCH (08:36)
[2019-06-12] MEDS: Aspirin 325 MG TAB PO SCH (08:36)
[2019-06-12] MEDS: Metoprolol Tartrate 100 MG TAB PO SCH (08:36)
[2019-06-12] MEDS: Amlodipine 10 MG TAB PO SCH (08:37)
[2019-06-12] MEDS: cloNIDine 0.3 MG TAB PO SCH (08:37)
[2019-06-12 14:35] VITALS: BP 148/81
[2019-06-12] MEDS ORDERED: Ibuprofen 600 MG TAB PO PRN (16:28)
--- NOTE | 2019-06-12 16:36 | PRG ---
DATE OF SERVICE: 06/12/2019 SUBJECTIVE: Deniz Lara is doing well today. He is tolerating his diet. He is having bowel movements, passing gas. He is not having any nausea or vomiting. OBJECTIVE: VITAL SIGNS: Temperature 97.6 degrees, heart rate 54, blood pressure 148/81. LUNGS: Clear to auscultation. CARDIAC: Regular rate and rhythm without murmur or gallop. ABDOMEN: Soft and nontender. Midline wound looks good. Overall, he is doing well. LABORATORY DATA: No laboratories today. PLAN: Plan is to discharge home today. He is taking Tylenol and ibuprofen for pain. He does not need any stronger analgesics. Job ID: [id number]
[2019-06-12 16:45] VITALS: TEMP 97.9
--- NOTE | 2019-06-17 14:23 | PDOC.OP ---
Operative Note - Operative Note Operative Note: PROCEDURE: Laparoscopic converted to open lysis of adhesions and reduction of internal hernia and repair of mesenteric defect SURGEON: Lilliana Jamison M.D. DATE: 06/08/2019 PREOPERATIVE DIAGNOSIS: Closed loop bowel obstruction POSTOPERATIVE DIAGNOSIS: Closed loop bowel obstruction HISTORY: Patient is status post emergent distal gastrectomy with Migel-en-Y reconstruction who presented to the emergency room with a history of severe abdominal pain nausea and vomiting. CT was concerning for closed loop obstruction and the patient's pain and tenderness were quite severe so recommendation was made to proceed emergently to the operating room for lysis of adhesions and possible bowel resection. PROCEDURE IN DETAIL: After informed consent was obtained and appropriate preoperative antibiotics administered the patient was taken to the operating room. He was placed in supine position and general endotracheal anesthesia was administered. The bladder was decompressed with a Love catheter and the stomach with an NG tube. He was prepped and draped in standard sterile fashion and local anesthesia infused the skin and subcutaneous tissues at the level of the umbilicus. A periumbilical incision was made and dissection carried down to the fascia. The fascia was divided and the peritoneum entered under direct vision. There were some omental adhesions at this level but these were to be taken down and a clear space created adequate for placement of the GelPort. This was placed and carbon dioxide gas insufflated to an abdominal pressure 15 which the patient tolerated well. The laparoscope was advanced into the abdominal cavity and the bowel appeared viable although distended. Additional dissecting ports were placed laterally and attempts made to identify the point of obstruction. The bowel appeared to be herniating through a mesenteric defect but due to the very distended nature of the bowel it was impossible to reduce it back through the mesenteric defect. Therefore the decision was made to convert to an open surgery. The trochars were removed and hemostasis verified. The midline incision was extended and the mesenteric defect identified. The bowel was gently compressed, pushing the bowel contents up through the mesenteric defect into the proximal nondistended bowel, and decreasing the caliber of the herniated bowel. Following this, the bowel was able to be gently reduced back up through the mesenteric defect and into the upper abdomen. There were some adhesions to the retroperitoneum which had to be taken down in order to completely reduce the bowel, suggesting that at least part of this herniation was chronic. The mesenteric defect was closed with 3-0 silk sutures. The bowel was then run from the ileocecal valve back to the jejunojejunostomy and multiple nonobstructing interloop adhesions taken down. The Migel limb, which had previously been herniated down through the mesenteric defect, was then run back to the retrocolic area. This was much less distended and appeared entirely viable. Most of the contents of the bowel had been backed up into the stomach and removed through the patient's NG tube. The gastrojejunostomy was not visualized due to dense omental adhesions obscuring the upper abdomen but the stomach was able to be palpated through the adhesions and the position of the NG tube in the stomach was confirmed. The biliary limb was nondistended and the anastomosis appeared to be widely patent. The abdomen was then copiously irrigated and the bowel again run and no additional adhesions noted. The omentum was drawn back down over the intestine and Seprafilm placed between this and the anterior abdominal wall. The fascia was closed under direct vision with a running looped PDS suture and the skin incisions closed with skin denise. Sterile dressings were placed and the patient was extubated and taken to recovery in good condition. Estimated blood loss was minimal. There were no complications. There were no specimens.
== END 2019-06-12 16:47 | disposition home or self-care (01) | DRG 336 ==
LOC: ERS 21:33 → SDC/OP 06-09 00:44 → SJJU 06-09 00:49
PROVIDERS: ADMIT Surgery; ATTEND Surgery
PROC: 0DNU0ZZ Release Omentum, Open Approach (ICD-10-PCS; principal; 2019-06-08)
PROC: 0DN80ZZ Release Small Intestine, Open Approach (ICD-10-PCS; 2019-06-08)
PROC: 0DJW4ZZ Inspection of Peritoneum, Percutaneous Endoscopic Approach (ICD-10-PCS; 2019-06-08)
DX: K56.609 Unspecified intestinal obstruction, unspecified as to partial versus complete obstruction (principal); N17.9 Acute kidney failure, unspecified; I16.0 Hypertensive urgency; I12.9 Hypertensive chronic kidney disease with stage 1 through stage 4 chronic kidney disease, or unspecified chronic kidney disease; N18.2 Chronic kidney disease, stage 2 (mild); E78.5 Hyperlipidemia, unspecified; E66.9 Obesity, unspecified; Z68.32 Body mass index [BMI] 32.0-32.9, adult; E11.22 Type 2 diabetes mellitus with diabetic chronic kidney disease; G47.33 Obstructive sleep apnea (adult) (pediatric); D49.0 Neoplasm of unspecified behavior of digestive system; K46.9 Unspecified abdominal hernia without obstruction or gangrene
CPT/HCPCS: 36415; 36416; 80048; 83735; 85025; 87070; 87205; 90471; 90686; 93005; 96361; 96374; 96375; C9113; G0008; J0131; J0360; J0670; J0694; J1100; J1650; J1885; J2001; J2270; J2405; J2704; J3010; J3490

== ENCOUNTER 2021-04-05 07:56 | Outpatient (CLI) | payer MEDICARE | END 2021-04-05 07:57 | disposition home or self-care (01) | LOC: PET 07:56 | PROVIDERS: ATTEND Internal Medicine Hematology & Oncology | DX: C49.A2 Gastrointestinal stromal tumor of stomach (principal) | CPT/HCPCS: 78815; A9552 ==

== ENCOUNTER 2021-07-12 08:58 | Outpatient (CLI) | payer MEDICARE | END 2021-07-12 08:59 | disposition home or self-care (01) | LOC: PET 08:58 | PROVIDERS: ATTEND Internal Medicine Hematology & Oncology | DX: C49.A2 Gastrointestinal stromal tumor of stomach (principal) | CPT/HCPCS: 78815; A9552 ==

== ENCOUNTER 2021-08-08 11:19 | Outpatient (CLI) | payer MEDICARE ==
[2021-08-08 12:45] LABS: #Neutrophils 1.4 10x3/uL (1.5-8.4); %Neutrophils 57.5 % (40.0-75.0)
[2021-08-08 12:46] LABS: #Monocytes 0.2 10x3/uL (0.0-1.1); %Basophils 0.4 % (0.0-2.0); %Eosinophils 1.2 % (0.0-6.0); %Monocytes 9.9 % (0.0-10.0); Hemoglobin 12.2 g/dL (13.5-17.5); Mean Corpuscular HGB CONC 32.5 g/dL (32.0-36.0); Mean Corpuscular Volume 95.2 fl (81.2-95.1); Mean Platelet Volume 10.5 fl (7.4-10.4); Platelet Count 230 10x3/uL (150-450); RBC Distribution Width 14.1 % (11.5-14.5); Red Blood Cell (RBC) Count 3.94 10x6/uL (4.32-5.72); White Blood Cell (WBC) Count 2.4 10x3/uL (3.5-10.5)
[2021-08-08 13:02] LABS: Anion Gap 12 mmol/L (10-20); BUN (Urea Nitrogen) 28 mg/dL (8.4-25.7); Calc. Creatinine Clearance 0 mL/min (70-130); Calcium 8.2 mg/dL (7.8-10.44); Carbon Dioxide 28 mmol/L (22-29); Chloride 107 mmol/L (98-107); Glucose 95 mg/dL (70-105); Sodium 143 mmol/L (136-145)
[2021-08-09 13:26] LABS: SARS-CoV-2 PCR by NAA DETECTED (NotDetected)
== END 2021-08-08 11:20 | disposition home or self-care (01) ==
LOC: LABBT 11:19
PROVIDERS: ATTEND Specialist
DX: U07.1 COVID-19 (principal); Z01.818 Encounter for other preprocedural examination; C49.A2 Gastrointestinal stromal tumor of stomach
CPT/HCPCS: 80048; 85025; 93005; U0003; U0005; 93010

== ENCOUNTER 2021-09-10 05:36 | Observation (INO) | payer MEDICARE ==
[2021-09-10] MEDS ORDERED: Ketorolac Tromethamine 30 MG/ML VIAL ONE (06:05)
[2021-09-10] MEDS ORDERED: Acetaminophen 500 MG TAB ONE (06:05)
[2021-09-10] MEDS ORDERED: Fentanyl 250 MCG/5 ML VIAL ONE (06:57)
[2021-09-10] MEDS ORDERED: ceFAZolin Sodium (SDC) 2 GM/100 ML BAG ONE (07:42)
[2021-09-10] MEDS ORDERED: PHENYLEPHRINE-NS 100 MCG/ML 10 ML SYRINGE ONE (07:52)
[2021-09-10] MEDS ORDERED: Ondansetron PF 4 MG/2 ML Vial ONE (07:52)
[2021-09-10] MEDS ORDERED: Calcium Chloride 1 GM/10 ML Abboject SYRINGE ONE (07:52)
[2021-09-10] MEDS ORDERED: Lidocaine 1% PF 5 ML VIAL ONE (07:52)
[2021-09-10] MEDS ORDERED: Dexamethasone 20 MG/5 ML VIAL ONE (07:52)
[2021-09-10] MEDS ORDERED: PROPOFOL 200 MG/20 ML VIAL ONE (07:52)
[2021-09-10] MEDS ORDERED: Glycopyrrolate 0.2 MG/ML 5 ML SYRINGE ONE (07:52)
[2021-09-10] MEDS ORDERED: Rocuronium Bromide 10 MG/ML (10ML VIAL) ONE (07:52)
[2021-09-10] MEDS ORDERED: Bupivacaine 0.25% HCL 30 ML VIAL ONE (08:13)
[2021-09-10] MEDS ORDERED: Xylocaine 1% w/ Epi 1:100K 10 ML VIAL ONE (08:13)
[2021-09-10] MEDS ORDERED: hydrALAZINE 20 MG/ML VIAL SLOW IVP PRN (10:10)
[2021-09-10] MEDS ORDERED: Calcium Carbonate 500 MG ChewTAB PO PRN (10:10)
[2021-09-10] MEDS ORDERED: Ibuprofen 600 MG TAB PO PRN (10:10)
[2021-09-10] MEDS ORDERED: Morphine 2 MG/ML VIAL SLOW IVP PRN (10:10)
[2021-09-10] MEDS ORDERED: Ondansetron PF 4 MG/2 ML Vial IVP PRN (10:10)
[2021-09-10] MEDS ORDERED: HYDROcodone/Acetaminophen 10/325 mg Tablet PO PRN (10:10)
[2021-09-10] MEDS ORDERED: Morphine 4 MG/ML VIAL SLOW IVP PRN ×2 (10:10→10:27)
[2021-09-10] MEDS ORDERED: Promethazine HCl 25 MG/ML VIAL IM PRN (10:10)
[2021-09-10] MEDS ORDERED: Dextrose 5% in Water 1,000 ML IV PRN (10:10)
[2021-09-10] MEDS ORDERED: Mag-Al 1200 mg/1200 mg/30 ML UDCUP PO PRN (10:10)
[2021-09-10] MEDS ORDERED: Dextrose 50% Abboject 50 ML SYRINGE SLOW IVP PRN (10:10)
[2021-09-10] MEDS ORDERED: Non-Formulary Medication 1 EACH PO PRN (10:19)
[2021-09-10] MEDS ORDERED: Ondansetron HCl/PF 4 MG/2 ML Vial IVP PRN (10:30)
[2021-09-10] MEDS ORDERED: Promethazine HCl 25 MG/ML VIAL IM/IV PRN (10:30)
[2021-09-10 10:48] VITALS: BMI 30.1
[2021-09-10] MEDS: D5 1/2 NS w/20 mEq KCL 1,000 ML IV SCH ×2 (11:27→20:04)
[2021-09-10] MEDS: Lisinopril 20 MG TAB PO SCH ×2 (12:52→20:01)
[2021-09-10] MEDS: hydrALAZINE 25 MG TAB PO SCH ×2 (12:53→20:05)
[2021-09-10] MEDS: cloNIDine 0.3 MG TAB PO SCH ×2 (12:53→20:01)
[2021-09-10] MEDS ORDERED: Non-Formulary Item 1 EACH (Hydralazine Hcl [Hydralazine Hcl] 100 MG Tablet) PO SCH (15:00)
[2021-09-10] MEDS ORDERED: FLU VACC QS2021-22(6MOS UP)/PF 60 MCG/0.5 ML SYRINGE IM ONE (18:00)
[2021-09-10] MEDS: Famotidine/PF 20 mg/2ml Vial SLOW IVP SCH (19:59)
[2021-09-10] MEDS: Famotidine 20 MG TAB PO SCH (20:04)
[2021-09-10] MEDS: Metoprolol Tartrate 100 MG TAB PO SCH (20:09)
[2021-09-11 05:39] LABS: #Lymphocytes 0.5 thou/uL (1.20-3.40); #Monocytes 0.5 thou/uL (0.11-0.59); #Neutrophils 6.9 thou/uL (1.40-6.50); %Eosinophils 0.4 % (0.0-10.0); %Lymphocytes 6.3 % (21.0-51.0); %Monocytes 6.8 % (0.0-10.0); %Neutrophils 86.4 % (42.0-75.0); Hemoglobin 12.3 g/dL (14.0-18.0); Mean Corpuscular HGB CONC 32.1 g/dL (32.0-36.0); Mean Corpuscular Hemoglobin 32.6 pg (27.0-31.0); Mean Platelet Volume 7.7 fL (7.4-10.4); Platelet Count 253 thou/uL (130-400); RBC Distribution Width 13.3 % (11.5-14.5); Red Blood Cell (RBC) Count 3.76 mill/uL (4.70-6.10)
[2021-09-11 07:48] VITALS: TEMP 98.1
[2021-09-11] MEDS ORDERED: Spironolactone 25 MG TAB PO SCH (08:00)
[2021-09-11] MEDS ORDERED: SPIRONOLACTONE 50 MG PO SCH (08:00)
[2021-09-11] MEDS ORDERED: Amlodipine 10 MG TAB PO SCH (09:00)
[2021-09-11] MEDS ORDERED: Aspirin 325 MG TAB PO SCH (09:00)
[2021-09-11] MEDS: cloNIDine 0.3 MG TAB PO SCH (09:42)
[2021-09-11] MEDS: hydrALAZINE 25 MG TAB PO SCH (09:42)
[2021-09-11] MEDS: Famotidine 20 MG TAB PO SCH (09:43)
[2021-09-11] MEDS: Metoprolol Tartrate 100 MG TAB PO SCH (09:43)
[2021-09-11] MEDS: Famotidine/PF 20 mg/2ml Vial SLOW IVP SCH (09:44)
[2021-09-11] MEDS: Lisinopril 20 MG TAB PO SCH (09:44)
[2021-09-11 12:13] VITALS: BP 116/72
== END 2021-09-11 13:15 | disposition home or self-care (01) ==
LOC: SURG A 05:36 → INTOOBSV 05:36 → SURG A 10:47 → EDSTATUS 13:47
PROVIDERS: ADMIT Specialist; ATTEND Specialist
PROC: 0DBW4ZZ Excision of Peritoneum, Percutaneous Endoscopic Approach (ICD-10-PCS; principal; 2021-09-10)
DX: C49.A9 Gastrointestinal stromal tumor of other sites (principal); C79.9 Secondary malignant neoplasm of unspecified site; K66.0 Peritoneal adhesions (postprocedural) (postinfection); E78.00 Pure hypercholesterolemia, unspecified; I11.0 Hypertensive heart disease with heart failure; I50.9 Heart failure, unspecified; G47.30 Sleep apnea, unspecified; E11.9 Type 2 diabetes mellitus without complications; Z86.16 Personal history of COVID-19; Z23 Encounter for immunization; Z79.82 Long term (current) use of aspirin; Z79.899 Other long term (current) drug therapy; Z90.3 Acquired absence of stomach [part of]; Z90.49 Acquired absence of other specified parts of digestive tract
CPT/HCPCS: 49329; 82962; 85025; 90686; 97139; C1713; G0008; G0378 ×2; 36415; 36416; 88304; 88341; 88342; 88360; 90471; J0690; J1100; J1885; J2405; J2704; J3010; J3480; S0020

== ENCOUNTER 2022-05-09 10:20 | Outpatient (CLI) | payer MEDICARE ==
[2022-05-09] MEDS ORDERED: Iopamidol-370 76% 500 ML 1 ML ONE (10:58)
== END 2022-05-09 10:21 | disposition home or self-care (01) ==
LOC: BICCT 10:20
PROVIDERS: ATTEND Internal Medicine Hematology & Oncology
DX: C49.A2 Gastrointestinal stromal tumor of stomach (principal); K76.89 Other specified diseases of liver; R93.2 Abnormal findings on diagnostic imaging of liver and biliary tract; K63.89 Other specified diseases of intestine
CPT/HCPCS: 74177; 82565; Q9967

== ENCOUNTER 2022-08-11 14:02 | Outpatient (CLI) | payer MEDICARE ==
[~2022-08-11 14:02] MED LIST changes: -ISOVUE-370 76%-LOCM 1 ML ONE; +Iopamidol 370 76% 100 ML VIAL ONE
== END 2022-08-11 14:03 | disposition home or self-care (01) ==
LOC: BICCT 14:02
PROVIDERS: ATTEND Internal Medicine Hematology & Oncology
DX: C49.A2 Gastrointestinal stromal tumor of stomach (principal); N28.89 Other specified disorders of kidney and ureter
CPT/HCPCS: 71260; 74177; 82565; Q9967

== ENCOUNTER 2023-07-06 09:31 | Outpatient (CLI) | payer MEDICARE ==
[2023-07-06] MEDS ORDERED: Iopamidol-370 76% 500 ML MDV (1 ML CHARGE) ONE (14:23)
== END 2023-07-06 09:32 | disposition home or self-care (01) ==
LOC: BICCT 09:31
PROVIDERS: ATTEND Internal Medicine Hematology & Oncology
DX: C49.A2 Gastrointestinal stromal tumor of stomach (principal)
CPT/HCPCS: 74177; 82565; Q9967